=== PATIENT | female | born 1985 | race Two or more races ===

== ENCOUNTER 2024-02-13 02:06 | Inpatient (IN) ==
[2024-02-13 02:31] LABS: BILIRUBIN,URINE NEGATIVE (NEGATIVE); BLOOD/HEMOGLOBIN,URINE 1+ (NEGATIVE); GLUCOSE, URINE NEGATIVE (NEGATIVE); KETONES,URINE NEGATIVE (NEGATIVE); LEUKOCYTE ESTERASE ,URINE 1+ (NEGATIVE); NITRITES,URINE NEGATIVE (NEGATIVE); PROTEIN,URINE NEGATIVE (NEGATIVE); UROBILINOGEN,URINE NORMAL (NORMAL)
[2024-02-13 02:37] VITALS: BMI 37.8
[2024-02-13 02:43] LABS: APPEARANCE,URINE CLOUDY (CLEAR); BACTERIA,URINE TRACE /HPF (NEGATIVE); COLOR,URINE YELLOW (YELLOW); SQUAMOUS EPITHELIAL CELL,UR FEW /HPF (NEGATIVE)
[2024-02-13 02:44] LABS: YEAST,URINE FEW /HPF (NEGATIVE)
[2024-02-13] MEDS ORDERED: REGLAN INJ 10 MG VIAL IVP PRN (03:28)
[2024-02-13] MEDS ORDERED: ZOFRAN INJ 4 MG VIAL IVP PRN (03:28)
[2024-02-13 03:39] LABS: EOSINOPHILS # (AUTO) 0.2 x10^3/uL (0.0-0.2); HEMOGLOBIN 12.3 g/dL (12.0-16.0)
[2024-02-13] MEDS: LR 1,000 ML IV 1,000 ML IV SCH (03:40)
[2024-02-13 03:43] LABS: BASOPHILS # (AUTO) 0.1 X10^3/uL (0.0-0.1); BASOPHILS % (AUTO) 1.1 % (0.2-1.0); BLOOD UREA NITROGEN 5 mg/dL (7-18); CALCIUM 8.9 mg/dL (8.5-10.1); CHLORIDE 101 mmol/L (98-107); CREATININE 0.64 mg/dL (0.55-1.02); EOSINOPHILS % (AUTO) 1.8 % (0.9-2.9); GLUCOSE 96 mg/dL (65-99); HEMATOCRIT 36.6 % (36.0-47.0); LYMPHOCYTES % (AUTO) 24.5 % (21.0-51.0); MEAN CORPUSCULAR HEMOGLOBIN 25.8 pg (27.0-34.0); MEAN CORPUSCULAR HGB CONC 33.5 g/dL (33.0-35.0); MEAN CORPUSCULAR VOLUME 76.9 fL (80.0-100.0); MEAN PLATELET VOLUME 7.4 fL (7.4-11.0); MONOCYTES # (AUTO) 0.7 x10^3/uL (0.3-0.8); MONOCYTES % (AUTO) 5.7 % (0.0-13.0); NEUTROPHILS # (AUTO) 8.1 x10^3/uL (2.2-4.8); NEUTROPHILS % (AUTO) 66.9 % (42.0-75.0); PLATELET COUNT 479 X10^3/uL (150.0-450.0); POTASSIUM 3.9 mmol/L (3.5-5.1); RED BLOOD COUNT 4.76 X10^6/uL (3.5-5.4); RED CELL DISTRIBUTION WIDTH 14.6 % (11.6-16.5); SODIUM 137 mmol/L (136-145); WHITE BLOOD COUNT 12.1 X10^3/uL (3.6-10.0); eGFR NON BLACK RACES > 60 (>60)
[2024-02-13] MEDS: AMPICILLIN VIAL 2 GRAM 2 G in NS 100 ML IV + SPIKE MINIBAG* 100 ML IV SCH (03:45)
[2024-02-13] MEDS: NS 100 ML IV 100 ML ONE (03:45)
[2024-02-13] MEDS: NUBAIN INJ 20 MG AMP IVP PRN (03:45)
[2024-02-13 04:30] LABS: RAPID PLASMA REAGIN NONREACTIVE (NONREACTIVE)
[2024-02-13] MEDS: OXYTOCIN 20 UNIT/1,000 ML-NS 20 UNIT/1,000 ML PLAST..BAG IV PRN (04:30)
[2024-02-13] MEDS: BETADINE SOLN ONE (05:35)
[2024-02-13] MEDS: OXYTOCIN 20 UNIT/1,000 ML-NS 20 UNIT/1,000 ML PLAST..BAG IV SCH (05:45)
[2024-02-13] MEDS: PITOCIN IVP ONE (05:45)
[2024-02-13] MEDS: NUBAIN INJ 10 MG AMP ONE (06:31)
[2024-02-13] MEDS: AMPICILLIN VIAL 2 GRAM ONE (06:31)
[2024-02-13] MEDS: D5 1/2 NS 1,000 ML 1,000 ML IV SCH (06:33)
[2024-02-13] MEDS: PITOCIN ONE (06:39)
[2024-02-13] MEDS: NS 1,000 ML IV 1,000 ML ONE (06:39)
[2024-02-13] MEDS ORDERED: AMBIEN PO PRN (06:51)
[2024-02-13] MEDS ORDERED: MILK OF MAGNESIA PO PRN (06:51)
[2024-02-13] MEDS ORDERED: DERMOPLAST PAIN RELIEF SPRAY TOP PRN (06:51)
[2024-02-13] MEDS: MOTRIN TAB 800 MG PO PRN (07:29)
[2024-02-13] MEDS ORDERED: AMPICILLIN VIAL 1 GRAM 1 G in NS 50 ML IV + SPIKE MINIBAG* 50 ML IV SCH (08:00)
[2024-02-13] MEDS: PRENATAL PLUS PO SCH (10:20)
[2024-02-13] MEDS: ADACEL or BOOSTRIX TDaP VACCINE IM ONE (18:36)
[2024-02-13] MEDS: ZOFRAN INJ 4 MG VIAL IVP PRN (20:42)
[2024-02-14 05:07] VITALS: RESP 18; O2SAT 97
[2024-02-14 05:25] LABS: HEMATOCRIT 27.8 % (36.0-47.0); HEMOGLOBIN 9.5 g/dL (12.0-16.0)
[2024-02-14 13:05] VITALS: BP 111/64; PULSE 75; TEMP 97.7
== END 2024-02-14 14:30 | disposition home or self-care (01) | DRG 807 ==
LOC: ER 02:06 → LD 02:50 → MED/SURG 06:02
PROVIDERS: ADMIT Obstetrics & Gynecology Obstetrics; ATTEND Obstetrics & Gynecology Obstetrics
DX: O70.0 First degree perineal laceration during delivery; O60.14X0 Preterm labor third trimester with preterm delivery third trimester, not applicable or unspecified; Z3A.36 36 weeks gestation of pregnancy; Z37.0 Single live birth